=== PATIENT | female | born 2000 | race Two or more races ===

== ENCOUNTER 2019-02-05 12:17 | Emergency (ER) | payer OTHER ==
[2019-02-05 14:03] VITALS: BP 120/68
--- NOTE | 2019-02-12 08:06 | ED ---
Lower Extremity - HPI Summary HPI Summary: This patient is a 18-year-old otherwise healthy female who presents to the ED with right foot injury. Patient states she was wearing bad shoes, rolled her foot and is now endorsing pain to the lateral side of the right foot. She denies any other symptoms or pain. Denies any numbness or tingling. There is no erythema or ecchymosis noted. No other signs of trauma. She remains ambulatory, however with discomfort. - History of Current Complaint Chief Complaint: EDExtremityLower Stated Complaint: RIGHT FOOT INJURY PER PT Time Seen by Provider: 02/05/19 12:44 Hx Obtained From: Patient Mechanism Of Injury: Twisted Onset of Pain: Minutes, Hours Onset/Duration: Hours Severity Initially: Moderate Severity Currently: Mild Pain Intensity: 3 Pain Scale Used: 0-10 Numeric Location: Is Discrete @ - right lateral foot injury Associated Signs And Symptoms: Negative: Swelling Aggravating Factor(s): Standing, Ambulation Alleviating Factor(s): Rest Able to Bear Weight: No - Risk Factors Gout Risk Factors: Negative DVT Risk Factors: Negative Septic Arthritis Risk Factor: Negative - Allergies/Home Medications Allergies/Adverse Reactions: Allergies Allergy/AdvReac Type Severity Reaction Status Date / Time No Known Allergies Allergy Verified 02/05/19 12:32 PMH/Surg Hx/FS Hx/Imm Hx Previously Healthy: Yes - Immunization History Hx Pertussis Vaccination: No Immunizations Up to Date: Yes Infectious Disease History: No Infectious Disease History: Denies: Traveled Outside the [place] in Last 30 Days - Social History Occupation: Unemployed, Student Lives: With Family Alcohol Use: Occasionally Hx Substance Use: No Substance Use Type: Reports: None Hx Tobacco Use: No Smoking Status (MU): Unknown if Ever Smoked Review of Systems Constitutional: Negative Negative: Chills, Fatigue Negative: Palpitations, Chest Pain Negative: Shortness Of Breath, Cough Positive: Arthralgia - right lateral portion of the foot Skin: Negative Neurological: Negative All Other Systems Reviewed And Are Negative: Yes Physical Exam Triage Information Reviewed: Yes Vital Signs On Initial Exam: Initial Vitals Temp Pulse Resp BP Pulse Ox 98.4 F 83 16 122/71 100 02/05/19 12:29 02/05/19 12:29 02/05/19 12:29 02/05/19 12:29 02/05/19 12:29 Vital Signs Reviewed: Yes Appearance: Positive: Well-Appearing, Well-Nourished Skin: Positive: Warm, Skin Color Reflects Adequate Perfusion Head/Face: Positive: Normal Head/Face Inspection Eyes: Positive: EOMI, STEVEN, Conjunctiva Clear Neck: Positive: Supple, No Lymphadenopathy Respiratory/Lung Sounds: Positive: Clear to Auscultation, Breath Sounds Present Cardiovascular: Positive: RRR, Pulses are Symmetrical in both Upper and Lower Extremities Musculoskeletal: Positive: Normal, Strength/ROM Intact Neurological: Positive: Speech Normal Psychiatric: Positive: Affect/Mood Appropriate Diagnostics - Vital Signs Vital Signs Temp Pulse Resp BP Pulse Ox 02/05/19 14:01 98.4 F 80 16 120/68 100 02/05/19 12:29 98.4 F 83 16 122/71 100 - Laboratory Lab Statement: Any lab studies that have been ordered have been reviewed, and results considered in the medical decision making process. Lower Extremity Course/Dx - Course Course Of Treatment: During this course of treatment, the patient is evaluated for right foot injury. On physical examination, there is no deformity noted, no ecchymosis or swelling. No erythema. Tenderness to the right lateral portion of the foot over the base of the fifth metatarsal. X-ray obtained which shows no acute osseous injury. Patient remains ambulatory, able to flex and extend at the foot without discomfort. She will be discharged home with foot injury without sprain or fracture. - Diagnoses Provider Diagnoses: Right foot injury Discharge ED - Sign-Out/Discharge Documenting (check all that apply): Patient Departure Patient Received Moderate/Deep Sedation with Procedure: No - Discharge Plan Condition: Stable Disposition: HOME Forms: *Work Release Referrals: [facility] - Miguelito JOHNSON [Primary Care Provider] - Additional Instructions: No fracture on exam Elevate Ice Ibuprofen - Billing Disposition and Condition Condition: STABLE Disposition: Home
== END 2019-02-05 14:01 | disposition home or self-care (01) ==
LOC: ED 12:17
DX: S99.921A Unspecified injury of right foot, initial encounter (principal); X50.9XXA Other and unspecified overexertion or strenuous movements or postures, initial encounter; Y92.9 Unspecified place or not applicable
CPT/HCPCS: 99282